=== PATIENT | male | born 1950 | race African-American/Black ===

== ENCOUNTER 2019-01-16 04:30 | Emergency (ER) | payer MEDICARE, MEDICAID ==
[~2019-01-16] VITALS: Ht 177.8 cm; Wt 87.0 kg
[2019-01-16] MEDS ORDERED: SODIUM CHLORIDE 0.9% 1,000 ML IV ONE (06:17)
[2019-01-16] MEDS ORDERED: LEVETIRACETAM 500MG PREMIX 100 ML IV ONE (06:30)
[2019-01-16 06:35] LABS: BASOPHILS % 0.7 % (0.0-2.0); EOSINOPHILS % 1.8 % (0.0-5.0); HEMATOCRIT. 27.9 % (42.0-52.0); HEMOGLOBIN. 8.8 g/dL (14.0-18.0); LYMPHOCYTES % 15.1 % (20.0-50.0); MEAN CORPUSCULAR HEMOGLOBIN 24.7 pg (28.0-32.0); MEAN CORPUSCULAR VOLUME 78.4 fL (80.0-94.0); MEAN PLATELET VOLUME 8.6 fl (7.4-10.4); MONOCYTES % 5.5 % (2.0-8.0); NEUTROPHILS % 76.9 % (40.0-76.0); PLATELET 230 x1000/uL (130-400); RED BLOOD CELL COUNT 3.56 mill/uL (4.7-6.1); RED CELL DISTRIBUTION WIDTH 17.9 % (11.6-14.6)
[2019-01-16 06:39] LABS: CHLORIDE 115 mEq/L (98-107)
[2019-01-16 06:44] LABS: ETHANOL BLOOD < 10 mg/dL
[2019-01-16 07:01] LABS: PHENOBARBITAL < 2.1 ug/mL (15.0-40.0)
[2019-01-16] MEDS ORDERED: PHENYTOIN SODIUM 1,000 MG in SODIUM CHLORIDE 0.9% 100 ML IV ONE (07:15)
[2019-01-16] MEDS ORDERED: PHENOBARBITAL 100MG TABLET PO ONE (07:15)
[2019-01-16 08:07] VITALS: BP 137/70
== END 2019-01-16 09:50 | disposition home or self-care (01) ==
LOC: ER 04:30
DX: G40.909 Epilepsy, unspecified, not intractable, without status epilepticus (principal); I10 Essential (primary) hypertension; Z91.19 Patient's noncompliance with other medical treatment and regimen
CPT/HCPCS: 36415; 71045; 80053; 80184; 80185; 80320; 83735; 85025; 96365; 96366; 96367; 99284; J1165; J1953; J7030; J7050; G0480